=== PATIENT | female | born 1985 | race Caucasian/White ===

== ENCOUNTER 2017-05-18 14:29 | Emergency (ER) | payer OTHER ==
[~2017-05-18] VITALS: Ht 170.2 cm; Wt 55.8 kg
[2017-05-18] MEDS ORDERED: METOCLOPRAMIDE HCL 10 MG/2 ML VIAL. IV ONE (15:00)
[2017-05-18] MEDS ORDERED: IV NORMAL SALINE 1,000ML 1,000 ML IV ONE (15:00)
[2017-05-18] MEDS ORDERED: PROCHLORPERAZINE 10 MG/2 ML VIAL. IV ONE (15:00)
[2017-05-18] MEDS ORDERED: diphenhydrAMINE 50 MG/ML VIAL IVP ONE (15:00)
[2017-05-18 16:04] VITALS: BP 111/63
--- NOTE | 2017-05-18 16:30 | PHYS DOC ---
Past History Past Medical History: Migraines Past Surgical History: Appendectomy, Cholecystectomy Alcohol Use: Occasionally Drug Use: None Adult General Chief Complaint Chief Complaint: HEADACHE HPI HPI Patient is a 31-year-old female complaining of a headache for 3 days now. The patient is in town from [place] visiting her who is active duty. Patient states she has a migraine headache about every 7-10 days. She has things that she uses at home and usually her headache gets better by about the end of the third day. This time, she feels like her headache is not improving, it's getting worse. She has been taking Imitrex twice a day, has had 5 doses of that with no relief. She's taken Fioricet and also Motrin 800 mg. She's had some nausea but no vomiting. She can't sleep because her head hurts too bad so she feels sleep deprived at this point. Her headache is described as a throbbing behind both of her eyes. It hurts worse when she blinks her eyes. It is similar to previous headaches that she start with that she has been being treated for. There is nothing new or different about this headache, it's not the worst headache she's ever had. She rarely has to go to the ER for headache. When she has done so, she hasn't necessarily had any thing that really helped. The last time she went to the ER, more than a year ago, they gave her "cocktail" of 4 medications that didn't really help. She doesn't remember what they were. They may give her some IV morphine which also didn't really help. She prefers to not get IV opiates if possible. She was driven here today by her . Review of Systems Review of Systems Constitutional: Denies fever or chills [] Eyes: Denies change in visual acuity GI: Positive nausea no vomiting Neurologic: As in history of present illness Current Medications Current Medications Current Medications Medications (Trade) Dose Ordered Sig/Wes Start Time Stop Time Status Last Admin Dose Admin Diphenhydramine HCl (Benadryl) 25 mg 1X ONCE 05/18/17 15:00 05/18/17 15:01 DC 05/18/17 15:00 25 MG Metoclopramide HCl (Reglan) 10 mg 1X ONCE 05/18/17 15:00 05/18/17 15:01 DC 05/18/17 15:10 10 MG Prochlorperazine Edisylate (Compazine) 10 mg 1X ONCE 05/18/17 15:00 05/18/17 15:01 DC 05/18/17 15:05 10 MG Sodium Chloride 1,000 ml @ 1,000 mls/hr 1X ONCE 05/18/17 15:00 05/18/17 15:59 DC 05/18/17 15:00 1,000 MLS/HR Allergies Allergies Allergies Coded Allergies Type Severity Reaction Last Updated Verified No Known Drug Allergies 05/18/17 No Physical Exam Physical Exam Constitutional: Well developed, well nourished, appears to be photophobic and have a headache but is alert and appropriate, mentating normally. HENT: Normocephalic, atraumatic, bilateral external ears normal, nose normal. [ ] Eyes: conjunctiva normal, no discharge. [] Neck: Normal range of motion, no stridor. [] Skin: Warm, dry, no erythema, no rash. [] Extremities: No tenderness, no cyanosis, no clubbing, ROM intact, no edema. [] Neurologic: Alert and oriented X 3, normal motor function, normal sensory function, no focal deficits noted. [] Current Patient Data Vital Signs Vital Signs Date Time Temp Pulse Resp B/P (MAP) Pulse Ox O2 Delivery O2 Flow Rate FiO2 05/18/17 16:04 90 20 111/63 (79) 100 Room Air 05/18/17 14:30 98.0 EKG EKG [] Radiology/Procedures Radiology/Procedures [] Course & Med Decision Making Course & Med Decision Making Pertinent Labs and Imaging studies reviewed. (See chart for details) 31-year-old female with a history of migraines presents with a migraine that is not getting better with her usual home treatment. I discussed with the patient giving her some IV fluids and IV migraine treatment including Benadryl, Reglan, and Compazine. She is agreeable to that plan. Recheck of the patient, her headache is not gone but is down to a 5. She feels better and wants to be discharged. She declines any further IV medications. [] Dragon Disclaimer Dragon Disclaimer This chart was dictated in whole or in part using Voice Recognition software in a busy, high-work load, and often noisy Emergency Department environment. It may contain unintended and wholly unrecognized errors or omissions. Departure Departure: Impression: Primary Impression: Headache Disposition: 01 HOME, SELF-CARE Condition: IMPROVED Referrals: DAKSHA JARAMILLO (PCP) Patient Instructions: Migraine Headache, [id number], Recurrent Migraine Headache Additional Instructions: Home to rest. Try to sleep in a dark quiet room. No driving for 12 hours because of the medications you were given here. Follow-up with your doctor if you are not improving as usual. HONG WALL MD May 18, 2017 16:30
== END 2017-05-18 16:30 | disposition home or self-care (01) ==
LOC: ER 14:29
DX: R51 Headache (principal); R11.0 Nausea; G43.909 Migraine, unspecified, not intractable, without status migrainosus
CPT/HCPCS: 96361; 96374; 96375; 99284; J0780; J1200; J2765; J7030